=== PATIENT | male | born 1970 | race Caucasian/White ===

== ENCOUNTER 2016-06-06 17:18 | Emergency (ER) | payer OTHER ==
[~2016-06-06] VITALS: Ht 177.8 cm; Wt 80.7 kg
--- NOTE | ~2016-06-06 | EKG ---
[address] [address] ELECTROCARDIOGRAM REPORT Name: BOWERSDELFINO RESENDEZ Room #: DEP Elena#: [id number] Admission: 06/06/16 Attend Phys: Discharge: 06/06/16 Date of : 68 Report #: [id number] THIS REPORT FOR: //name// [facility] ED Test Date: 2016-06-06 Test Time: 17:32:15 Pat Name: DELFINO BOWERS Department: Room: Gender: M Force Dispatcher: pilar : 1970 Requested By: Carlton Haskins Order Number: [id number] MD: Gerald Stanford Measurements Intervals Energy Rate: 80 P: 42 WY: 148 QRS: -12 QRSD: 85 T: 61 QT: 359 QTc: 415 Interpretive Statements Sinus rhythm ST elevation likely early repolarization No previous ECG available for comparison Electronically Signed On 06-07-2016 20:06:59 CDT by Gerald Stanford [email or web address] <ELECTRONICALLY SIGNED> By: Gerald Stanford MD 06/07/162005 173 1732 MD AMY Novoa
[2016-06-06] MEDS ORDERED: XANAX1 MG PO (18:48)
[2016-06-06 18:56] VITALS: BP 119/80
== END 2016-06-06 18:56 | disposition home or self-care (01) ==
LOC: ER 17:18
DX: F41.9 Anxiety disorder, unspecified (principal)